=== PATIENT | female | born 1990 | race Caucasian/White ===

== ENCOUNTER 2016-10-25 12:14 | Outpatient (CLI) | payer MEDICAID ==
[~2016-10-25] VITALS: Ht 170.2 cm; Wt 67.6 kg
[~2016-10-25 12:14] MED LIST: AMOX500C2 PO; BCP; FAMO20TA5 PO; NITR100C3 PO; POLY17PO23 GT; PRD50T PO
[2016-10-25] MEDS ORDERED: MULT-64 PO (12:27)
[2016-10-25 12:29] VITALS: BP 110/74
== END 2016-10-25 12:44 | disposition home or self-care (01) ==
LOC: PREOP 12:14
PROVIDERS: ATTEND Obstetrics & Gynecology
DX: Z01.818 Encounter for other preprocedural examination (principal); Z11.2 Encounter for screening for other bacterial diseases; O34.219 Maternal care for unspecified type scar from previous cesarean delivery
CPT/HCPCS: 87081

== ENCOUNTER 2016-10-29 06:20 | Inpatient (IN) | payer MEDICAID ==
[~2016-10-29] VITALS: Ht 172.7 cm; Wt 67.6 kg
[~2016-10-29 06:20] MED LIST changes: +CITRIC ACID/SOB CIT (BICITRA) 30 ML UDC ONE; +FAMOTIDINE 20MG/2ML IV (PEPCID) ONE; +METOCLOPRAMIDE INJ 10 MG/2 ML (REGLAN) ONE; +MULT-64 PO; +ceFAZolin 1,000 MG (ANCEF) VIAL ONE
[2016-10-29] MEDS ORDERED: FAMOTIDINE 20MG/2ML IV (PEPCID) IV NR (06:30)
[2016-10-29] MEDS ORDERED: CITRIC ACID/SOB CIT (BICITRA) 30 ML UDC PO NR (06:30)
[2016-10-29] MEDS ORDERED: METOCLOPRAMIDE INJ 10 MG/2 ML (REGLAN) IV NR (06:30)
[2016-10-29] MEDS ORDERED: CATHETER FLUSH 10 ML SYR IV PRN (06:30)
[2016-10-29] MEDS ORDERED: fentaNYL INJECTION 100 MCG/2 ML AMP ONE (06:44)
[2016-10-29] MEDS ORDERED: OXYTOCIN/NORMAL SALINE 1,000 ML IV ONE (06:44)
[2016-10-29 07:00] VITALS: BP 128/76
[2016-10-29 07:12] LABS: BASOPHILS % (AUTO) 0 % (0-10); EOSINOPHILS # (AUTO) 0.1 10^3/uL (0.0-0.3); EOSINOPHILS % (AUTO) 1 % (0-10); LYMPHOCYTES # (AUTO) 3.5 X 10^3 (1.0-4.0); LYMPHOCYTES % (AUTO) 30 % (12-44); MEAN CORPUSCULAR HEMOGLOBIN 30 PG (25-34); MEAN CORPUSCULAR HGB CONC 34 G/DL (32-36); MEAN CORPUSCULAR VOLUME 88 FL (80-99); MEAN PLATELET VOLUME 10.5 FL (7.4-10.4); MONOCYTES % (AUTO) 9 % (0-12); NEUTROPHILS # (AUTO) 7.1 X 10^3 (1.8-7.8); NEUTROPHILS % (AUTO) 61 % (42-75); PLATELET COUNT 252 10^3/uL (130-400); RED BLOOD COUNT 4.63 10^6/uL (4.35-5.85); RED CELL DISTRIBUTION WIDTH 13.1 % (10.0-14.5); WHITE BLOOD COUNT 11.7 10^3/uL (4.3-11.0)
[2016-10-29] MEDS ORDERED: LIDOCAINE PF 2% 10 ML (XYLOCAINE) AMP ONE (07:18)
[2016-10-29] MEDS ORDERED: BUPIVACAINE SPINAL 0.75% (SENSORCAINE) 2 ML AMP ONE (07:19)
[2016-10-29] MEDS: LACTATED RINGERS 1,000 ML IV PRN ×2 (07:19→07:39)
--- NOTE | 2016-10-29 07:34 | Progress Note-Pre Operative ---
Pre-Operative Progress Note H&P Reviewed The H&P was reviewed, patient examined and no changes noted. Date H&P Reviewed: Oct 29, 2016 Time H&P Reviewed: 07:28 Pre-Operative Diagnosis: Previous section SLAVA SANCHEZ DO Oct 29, 2016 07:33
[2016-10-29] MEDS ORDERED: D5 LR IV SOLUTION 1,000 ML IV SCH (08:35)
[2016-10-29] MEDS ORDERED: OXYTOCIN/NORMAL SALINE 500 ML IV SCH (08:35)
[2016-10-29] MEDS ORDERED: TETANUS,DIPTH,PERTUSS P/F (BOOSTRIX) 0.5 ML VIAL IM SCH (08:45)
[2016-10-29] MEDS ORDERED: MEASLES,MUMPS,RUBELLA 1 EA INJ SC SCH (08:45)
[2016-10-29] MEDS ORDERED: HYDROmorphone (DILAUDID) 2 MG/ML VIAL IVP PRN (08:45)
--- NOTE | 2016-10-29 08:55 | Cesarean Section Operative ---
Procedure Procedure Note Pre-operative Diagnosis: Kassi Leyva is a 26 /Para 2 / 1, Gestational Age 39 weeks with history of previous section Post-operative Diagnosis: same Procedure: Primnary low transverse section Physician: SLAVA SANCHEZ Upholstery Repairer: Silva Goncalves APRN Upholstery Repairer is necessary due to the nature of the procedure. the baby cannot be delivered without the acquisitions assistant who also retracts important neurovascular and bowel structures. Estimated blood loss: 600 mL Disposition: stable in recover Findings: Viable Male infant, Apgars 8/9, weight 7#11oz, intact placenta, 3vc, normal appearing uterus, tubes, and ovaries. Indications:Kassi Leyva is a 26 /Para 2 / 1,Gestational Age 39 weeks with history of previous section Procedure Details: The patient was seen in pre-op and the procedure was discussed with the patient in full, including the risks, benefits, and alternatives. All questions were answered. The patient was taken to the operating room and a time out was performed, verifying patient and procedure. After spinal anesthesia was placed by our anesthesia colleagues, the patient was placed in the dorsal supine with leftward tilt for uterine displacement.~ Her abdomen was then prepped and draped in the typical sterile fashion. A Pfannenstiel skin incision was made using a scalpel and carried down through the underlying fascia. The fascia was incised in the midline and tented up using Dayana clamps. On both the inferior and superior fascia side the rectus muscle was dissected off bluntly and sharply using Leong scissors. The peritoneum was identified and entered bluntly in the midline. This was then stretched laterally using manual strength. After entering the abdominal cavity and confirming lack of intraperitoneal adhesions, a large Freddy retractor was placed and the lower uterine segment was visualized. A scalpel was utilized to make a low transverse uterine incision. Amniotomy was performed with return of clear fluid. The 's head was grasped and brought to the level of the incision and delivered with assistance from the Silastic suction. Fundal pressure was applied and infant was delivered without difficulty. Mouth and nares were suctioned with bulb suction. After the umbilical cord was clamped and cut, the infant was handed off to the pediatric staff. A sample of cord blood was then obtained. The placenta was delivered intact via uterine massage. The uterus was cleared of all clots and debris. The uterine incision was closed using 0 Vicryl in a running locked fashion. A second imbricated layer was placed using 0 Vicryl in a running fashion as well. The bilateral tubes and ovaries appeared normal. The abdominal gutters were cleared of all clots and debris. A final check of the uterine incision showed it to be hemostatic. The peritoneum was closed using 3- 0 Vicryl in a running fashion. The fascia was closed with 0 Vicryl in a running fashion. The subcutaneous space was hemostatic, and irrigated. The subcutaneous space was closed with 3-0 Vicryl in several single interrupted stitches. The skin was then closed using 4-0 Monocryl in a running subcuticular fashion. The skin edges were reapproximated together and were hemostatic. A pressure dressing was applied. All sponge, lap and needle counts were correct at the end of the procedure per nursing. Vitals - Labs Vital Signs - I&O Vital Signs Date Time Temp Pulse Resp B/P (MAP) Pulse Ox O2 Delivery O2 Flow Rate FiO2 10/29/16 07:00 99.2 89 16 128/76 Labs Laboratory Tests 10/29/16 07:00: White Blood Count 11.7H, Red Blood Count 4.63, Hemoglobin 13.8, Hematocrit 41, Mean Corpuscular Volume 88, Mean Corpuscular Hemoglobin 30, Mean Corpuscular Hemoglobin Concent 34, Red Cell Distribution Width 13.1, Platelet Count 252, Mean Platelet Volume 10.5H, Neutrophils (%) (Auto) 61, Lymphocytes (%) (Auto) 30 , Monocytes (%) (Auto) 9, Eosinophils (%) (Auto) 1, Basophils (%) (Auto) 0, Neutrophils # (Auto) 7.1, Lymphocytes # (Auto) 3.5, Monocytes # (Auto) 1.0, Eosinophils # (Auto) 0.1, Basophils # (Auto) 0.0 SLAVA SANCHEZ DO Oct 29, 2016 08:55
[2016-10-29] MEDS ORDERED: HYDR-3812 PO (08:57)
[2016-10-29] MEDS ORDERED: IBUP-1773 PO (08:57)
--- NOTE | 2016-10-29 09:00 | Discharge Inst-Women's Service ---
Discharge Inst-Women's Serv Depart Medication/Instructions New, Converted or Re-Newed RX: RX on Chart Instructions No lifting over 25 lbs. No driving for 1 week. Nothing in the vagina Final Diagnosis Previous section Consults/Follow Up Additional Follow Up: Yes (1-2 weeks for incision check and 6 weeks pp exam ) Activity Activity: Activity as Tolerated Driving Instructions: No Driving for 1 Week NO SMOKING: NO SMOKING Nothing Inside Vagina: No Douching, No [place], No Tampons Diet Discharge Diet: No Restrictions Symptoms to Report to : Swelling Increased, Pain Increased, Fever Over 101 Degrees F, Vaginal Bleeding Increase, Cramps in Feet or Legs, Vaginal Discharge Foul For Any Problems or Questions: Contact Your Physician Skin/Wound Care Infection Signs and Symptoms: Increased Redness, Foul Odor of Wound, Increased Drainage, Skin Itchy or Has a Rash, Increased Swelling, Temperature Above 101 F Operative Area Clean and Dry: Keep Incision Clean/Dry Stitches/[place]/Dermabond: Dermabond Bathing Instructions: SLAVA Locke DO Oct 29, 2016 09:00
[2016-10-29 10:32] LABS: BILIRUBIN,URINE NEGATIVE (NEGATIVE); KETONES,URINE NEGATIVE (NEGATIVE); LEUKOCYTE ESTERASE ,URINE 2+ (NEGATIVE); NITRITE,URINE NEGATIVE (NEGATIVE); PH,URINE 7 (5-9); PROTEIN,URINE NEGATIVE (NEGATIVE); UROBILINOGEN,URINE NORMAL (NORMAL)
[2016-10-29] MEDS: DOCUSATE SODIUM 100 MG (COLACE) CAP PO SCH ×2 (10:38→20:43)
[2016-10-29] MEDS: KETOROLAC 30 MG/ML VIAL IVP SCH ×3 (10:39→22:15)
[2016-10-29 10:43] LABS: CALCIUM OXALATE CRYSTALS,UR FEW /LPF
[2016-10-29 12:00] VITALS: BP 112/65
[2016-10-29] MEDS: HYDROcodone/APAP 5 MG/325 MG (LORTAB) TAB PO PRN ×3 (12:07→20:43)
[2016-10-29] MEDS: CATHETER FLUSH 10 ML SYR IV SCH ×2 (12:13→22:15)
[2016-10-29 16:00] VITALS: BP 102/63
[2016-10-29] MEDS ORDERED: PETROLATUM JELLY(VASELINE) 2.5 OZ TUBE ONE (20:08)
[2016-10-29 20:10] VITALS: BP 126/74
[2016-10-30] VITALS: BP 120/68
[2016-10-30 04:31] VITALS: BP 102/71
[2016-10-30] MEDS: KETOROLAC 30 MG/ML VIAL IVP SCH (04:45)
[2016-10-30] MEDS: CATHETER FLUSH 10 ML SYR IV SCH (04:46)
[2016-10-30 08:00] VITALS: BP 108/73
--- NOTE | 2016-10-30 08:13 | Postpartum Progress Note ---
Post Op Post-operative Day #1 Subjective: Patient is without complaints. Ambulating, voiding. Tolerating a regular diet without nausea or vomiting. Normal lochia. Pain is well controlled with oral pain medications. Passing flatus. Breast feeding. Objective: VS - Last 72 Hours, by Label 10/29/16 10/29/16 10/29/16 10/29/16 07:00 12:00 16:00 20:10 Temp 99.2 98.8 98.0 97.6 Pulse 89 62 65 62 Resp 16 18 20 17 B/P (MAP) 128/76 112/65 102/63 126/74 Pulse Ox 98 95 98 O2 Delivery Room Air Room Air Room Air 10/30/16 10/30/16 00:00 04:31 Temp 98.4 97.2 Pulse 70 72 Resp 19 18 B/P (MAP) 120/68 102/71 Pulse Ox 98 98 O2 Delivery Room Air Room Air Physical Exam: General - Alert and oriented, no apparent distress Abdomen - Soft, appropriately tender to palpation, non-distended, fundus firm at umbilicus Incision - clean, dry and intact; no erythema or induration, no drainage Extremities - no edema, negative Coy's bilaterally labs pending this AM Assessment: 26 y/o post-operative day # 1, status post RLTCS. Recovering well, hemodynamically stable Rh+ Awaiting Hgb Plan: Routine post-operative care. Encourage breast feeding. Encourage ambulation. VTE prophylaxis: SCDs. Plan for discharge tomorrow. Vitals - Labs Vital Signs - I&O Vital Signs Date Time Temp Pulse Resp B/P (MAP) Pulse Ox O2 Delivery O2 Flow Rate FiO2 10/30/16 04:31 97.2 72 18 102/71 98 Room Air 10/30/16 00:00 98.4 70 19 120/68 98 Room Air 10/29/16 20:10 97.6 62 17 126/74 98 Room Air 10/29/16 16:00 98.0 65 20 102/63 95 Room Air 10/29/16 12:00 98.8 62 18 112/65 98 Room Air I & O 10/30/16 07:00 Intake Total 4094 ml Output Total 1750 ml Balance 2344 ml SORIN PATE MD Oct 30, 2016 08:13
[2016-10-30] MEDS: IBUPROFEN 600 MG (MOTRIN) TAB PO SCH ×3 (08:26→21:22)
[2016-10-30] MEDS: HYDROcodone/APAP 5 MG/325 MG (LORTAB) TAB PO PRN ×3 (08:26→18:00)
[2016-10-30] MEDS: DOCUSATE SODIUM 100 MG (COLACE) CAP PO SCH ×2 (08:27→21:22)
[2016-10-30] MEDS: FERROUS SULF 325 MG (IRON) TAB PO SCH (08:27)
[2016-10-30 08:34] LABS: BASOPHILS % (AUTO) 0 % (0-10); EOSINOPHILS % (AUTO) 0 % (0-10); LYMPHOCYTES # (AUTO) 2.4 X 10^3 (1.0-4.0); LYMPHOCYTES % (AUTO) 14 % (12-44); MEAN CORPUSCULAR HEMOGLOBIN 29 PG (25-34); MEAN CORPUSCULAR HGB CONC 33 G/DL (32-36); MEAN CORPUSCULAR VOLUME 89 FL (80-99); MEAN PLATELET VOLUME 9.9 FL (7.4-10.4); MONOCYTES # (AUTO) 1.1 X 10^3 (0.0-1.0); MONOCYTES % (AUTO) 6 % (0-12); NEUTROPHILS # (AUTO) 13.1 X 10^3 (1.8-7.8); NEUTROPHILS % (AUTO) 79 % (42-75); PLATELET COUNT 225 10^3/uL (130-400); RED BLOOD COUNT 4.18 10^6/uL (4.35-5.85); RED CELL DISTRIBUTION WIDTH 13.2 % (10.0-14.5); WHITE BLOOD COUNT 16.5 10^3/uL (4.3-11.0)
--- NOTE | 2016-10-30 09:37 | Anesthesia-Regional Post-Op ---
Regional Patient Condition Mental Status: Alert, Oriented x3 Circulation: Same as Pre-Op Headache: Absent Sensation: Full Recovery Motor Block: Absent Post Op Complications Complications None Follow Up Care/Instructions Patient Instructions None needed. Anesthesia/Patient Condition Patient is doing well, no complaints, stable vital signs, no apparent adverse anesthesia problems. No complications reported per nursing. RAMOS BIRMINGHAM CRNA Oct 30, 2016 09:37
[2016-10-30 12:00] VITALS: BP 111/71
[2016-10-30 16:00] VITALS: BP 106/62
[2016-10-30 20:40] VITALS: BP 119/67
[2016-10-31] MEDS: HYDROcodone/APAP 5 MG/325 MG (LORTAB) TAB PO PRN ×2 (00:55→11:58)
[2016-10-31] MEDS: IBUPROFEN 600 MG (MOTRIN) TAB PO SCH ×2 (06:35→13:20)
[2016-10-31 08:45] VITALS: BP 112/68
[2016-10-31] MEDS: FERROUS SULF 325 MG (IRON) TAB PO SCH (08:58)
[2016-10-31] MEDS: DOCUSATE SODIUM 100 MG (COLACE) CAP PO SCH (08:58)
--- NOTE | 2016-10-31 09:32 | Postpartum Progress Note ---
Post Op Post-operative Day #2 Subjective: Patient is without complaints. Ambulating, voiding. Tolerating a regular diet without nausea or vomiting. Normal lochia. Pain is well controlled with oral pain medications. Passing flatus. Objective: VS - Last 72 Hours, by Label 10/29/16 10/29/16 10/29/16 10/29/16 07:00 12:00 16:00 20:10 Temp 99.2 98.8 98.0 97.6 Pulse 89 62 65 62 Resp 16 18 20 17 B/P (MAP) 128/76 112/65 102/63 126/74 Pulse Ox 98 95 98 O2 Delivery Room Air Room Air Room Air 10/30/16 10/30/16 10/30/16 10/30/16 00:00 04:31 08:00 12:00 Temp 98.4 97.2 96.4 97.1 Pulse 70 72 58 68 Resp 19 18 18 18 B/P (MAP) 120/68 102/71 108/73 111/71 Pulse Ox 98 98 96 96 O2 Delivery Room Air Room Air Room Air Room Air 10/30/16 10/30/16 10/31/16 10/31/16 16:00 20:40 01:30 08:45 Temp 98.1 97.4 97.0 98.0 Pulse 62 61 65 67 Resp 18 18 18 16 B/P (MAP) 106/62 119/67 112/68 Pulse Ox 96 98 97 O2 Delivery Room Air Room Air Room Air Room Air Physical Exam: General - Alert and oriented, no apparent distress Abdomen - Soft, appropriately tender to palpation, non-distended, fundus firm at umbilicus Incision - clean, dry and intact; no erythema or induration, no drainage Extremities - no edema, negative Coy's bilaterally no new labs Assessment: 26 y/o post-operative day # 2, status post RLTCS. Recovering well, hemodynamically stable Plan: Routine post-operative care. Encourage breast feeding. Encourage ambulation. VTE prophylaxis: SCDs. Plan for discharge today, f/u with Dr. Menon as per her discharge instructions. Vitals - Labs Vital Signs - I&O Vital Signs Date Time Temp Pulse Resp B/P (MAP) Pulse Ox O2 Delivery O2 Flow Rate FiO2 10/31/16 08:45 98.0 67 16 112/68 Room Air 10/31/16 01:30 97.0 65 18 97 Room Air 10/30/16 20:40 97.4 61 18 119/67 98 Room Air 10/30/16 16:00 98.1 62 18 106/62 96 Room Air 10/30/16 12:00 97.1 68 18 111/71 96 Room Air SORIN PATE MD Oct 31, 2016 09:32
[2016-10-31 14:10] VITALS: BP 114/73
== END 2016-10-31 15:20 | disposition home or self-care (01) | DRG 766 ==
LOC: LDRP 06:20 → WS 10:28
PROVIDERS: ADMIT Obstetrics & Gynecology; ATTEND Obstetrics & Gynecology
PROC: 10D00Z1 Extraction of Products of Conception, Low, Open Approach (ICD-10-PCS; principal; 2016-10-29 07:43)
DX: O34.211 Maternal care for low transverse scar from previous cesarean delivery (principal); Z3A.39 39 weeks gestation of pregnancy; Z37.0 Single live birth
CPT/HCPCS: 36415; 81000; 85025; 86850; 86900; 86901; 94664

== ENCOUNTER 2016-11-07 20:19 | Observation (INO) | payer MEDICAID ==
[~2016-11-07] VITALS: Ht 172.7 cm; Wt 61.2 kg
[~2016-11-07 20:19] MED LIST changes: -CITRIC ACID/SOB CIT (BICITRA) 30 ML UDC ONE; -FAMOTIDINE 20MG/2ML IV (PEPCID) ONE; +HYDR-3812 PO; +IBUP-1773 PO; -METOCLOPRAMIDE INJ 10 MG/2 ML (REGLAN) ONE; -ceFAZolin 1,000 MG (ANCEF) VIAL ONE
--- NOTE | 2016-11-07 21:49 | ED GU-Female ---
General Chief Complaint: -Female Stated Complaint: INCISION BLEEDING, ABD PAIN AND CRAMPING Nursing Triage Note: VAG BLEED/ABDOMINAL CRAMPING X 1.5HRS. S/P 10/30/16 Nursing Sepsis Screen: No Definite Risk Source: patient Exam Limitations: no limitations History of Present Illness Time seen by provider: 21:49 Initial Comments 26-year-old female patient presents to the emergency department with complaints of vaginal bleeding 9 days postop from . performed on by Dr. Sanchez. Patient reports mild spotting until this afternoon when she began having heavy vaginal bleeding. States she soaked through 2 pads and her clothes while in the emergency department waiting room. Patient does complain of some nausea as well as lower abdominal cramping. Denies fever, chills, dysuria, frequency, hematuria. Patient is breast feeding. Timing/Duration: this afternoon, getting worse Severity/Quality: cramping Location: suprapubic Radiation: none Activities at Onset: none Prior Genitourinary Problems: none Sexual [place] History: not active Modifying Factors: Worsens With Movement, Worsens With Palpation Allergies and Home Medications Allergies Coded Allergies: No Known Drug Allergies (Unverified , 11/08/16) Home Medications Hydrocodone/Acetaminophen 1 Each Tablet, 1-2 TAB PO Q4H PRN for PAIN-MODERATE, # 45 Prescribed by: SLAVA SANCHEZ on 10/29/16 0857 Ibuprofen 600 Mg Tablet, 600 MG PO Q6H, #40 Ref 1 Prescribed by: SLAVA SANCHEZ on 10/29/16 0857 Multivitamins with Iron 1 Each Tab.chew, 1 EACH PO DAILY, (Reported) Constitutional: No chills, No diaphoresis, No dizziness, No fever, No malaise Respiratory: No cough, No short of breath Cardiovascular: No chest pain, No edema, No palpitations, No syncope Gastrointestinal: see HPI, abdominal pain, No constipation, No diarrhea, loss of appetite, nausea, No vomiting Genitourinary: see HPI, denies burning, denies discharge, denies dysuria, denies frequency, denies flank pain, pain, other (vaginal bleeding) Musculoskeletal: no symptoms reported Skin: no symptoms reported Psychiatric/Neurological: No Symptoms Reported Hematologic/Lymphatic: No Symptoms Reported All Other Systemes Reviewed Negative Unless Noted: Yes (Negative excepted noted.) Past Rjukkqf-Hlhact-Rzcfyo Hx Patient Social History Alcohol Use: Denies Use Recreational Drug Use: No Smoking Status: Never a Smoker 2nd Hand Smoke Exposure: No Recent Foreign Travel: No Contact w/Someone Who Travel: No Recent Infectious Disease Expo: No Recent Hopitalizations: No Immunizations Up To Date Tetanus Booster (TDap): Less than 5yrs Seasonal Allergies Seasonal Allergies: No Surgeries HX Surgeries: Yes Surgeries: Adenoidectomy, Section (x2), Tonsillectomy Respiratory Hx Respiratory Disorders: Yes Respiratory Disorders: Asthma Cardiovascular Hx Cardiac Disorders: No Neurological Hx Neurological Disorders: No Reproductive System : No Hx : 2 Hx Para: 2 Hx Reproductive Disorders: No Sexually Transmitted Disease: No HIV/AIDS: No Female Reproductive Disorders: Denies Genitourinary Hx Genitourinary Disorders: No Gastrointestinal Hx Gastrointestinal Disorders: No Gastrointestinal Disorders: Gastroesophageal Reflux Musculoskeletal Hx Musculoskeletal Disorders: No Musculoskeletal Disorders: Chronic Back Pain Endocrine Hx Endocrine Disorders: No HEENT HX ENT Disorders: Yes Loss of Vision: Denies Hearing Impairment: Denies Psychosocial Hx Psychiatric Problems: Yes (BIPOLAR) Behavioral Health Disorders: Anxiety, Bipolar Blood Transfusions Hx Blood Disorders: No Adverse Reaction to a Blood Tr: No (N/A) Reviewed Nursing Assessment Reviewed/Agree w Nursing PMH: Yes Family Medical History Significant Family History: No Pertinent Family Hx Family Medial History: COPD 19 MOTHER Cardiovascular disease 19 MOTHER Hypertension 19 MOTHER Kidney disease 19 MOTHER Seizure disorder 19 MOTHER UNKOWN HX 19 FATHER G8 BROTHER Physical Exam Vital Signs Vital Sign - Last 12Hours 11/07/16 21:19 Temp 100.2 Pulse 100 Resp 18 B/P (MAP) 154/101 Pulse Ox 96 O2 Delivery Room Air Capillary Refill : Less Than 3 Seconds General Appearance: WD/WN, mild distress HEENT: PERRL/EOMI, pharynx normal Neck: supple, normal inspection Cardiovascular: normal peripheral pulses, regular rate, rhythm, no edema, no murmur Respiratory: lungs clear, normal breath sounds, no respiratory distress Gastrointestinal: normal bowel sounds, soft, No distended, guarding ( suprapubic and RLQ.), No rebound, tenderness (suprapubic and BLQ), other (lower abdominal incision intact without evidence of cellulitis or drainage.) Pelvic: other ((deferred due to recent c/section)) Back: normal inspection Extremities: normal inspection, no pedal edema, normal capillary refill Neurologic/Psychiatric: alert, normal mood/affect, oriented x 3 Skin: normal color, warm/dry Progress/Results/Core Measures Results/Orders Lab Results Laboratory Tests Test 11/07/16 22:05 Range/Units White Blood Count 14.4 H 4.3-11.0 10^3/uL Red Blood Count 4.63 4.35-5.85 10^6/uL Hemoglobin 13.3 11.5-16.0 G/DL Hematocrit 41 35-52 % Mean Corpuscular Volume 88 80-99 FL Mean Corpuscular Hemoglobin 29 25-34 PG Mean Corpuscular Hemoglobin Concent 33 32-36 G/DL Red Cell Distribution Width 12.4 10.0-14.5 % Platelet Count 337 130-400 10^3/uL Mean Platelet Volume 9.0 7.4-10.4 FL Neutrophils (%) (Auto) 73 42-75 % Lymphocytes (%) (Auto) 18 12-44 % Monocytes (%) (Auto) 8 0-12 % Eosinophils (%) (Auto) 1 0-10 % Basophils (%) (Auto) 0 0-10 % Neutrophils # (Auto) 10.5 H 1.8-7.8 X 10^3 Lymphocytes # (Auto) 2.6 1.0-4.0 X 10^3 Monocytes # (Auto) 1.1 H 0.0-1.0 X 10^3 Eosinophils # (Auto) 0.1 0.0-0.3 10^3/uL Basophils # (Auto) 0.1 0.0-0.1 10^3/uL Neutrophils % (Manual) 63 % Lymphocytes % (Manual) 21 % Monocytes % (Manual) 7 % Eosinophils % (Manual) 0 % Basophils % (Manual) 1 % Band Neutrophils 8 % Blood Morphology Comment NORMAL Sodium Level 139 135-145 MMOL/L Potassium Level 3.6 3.6-5.0 MMOL/L Chloride Level 103 98-107 MMOL/L Carbon Dioxide Level 26 21-32 MMOL/L Anion Gap 10 5-14 MMOL/L Blood Urea Nitrogen 12 7-18 MG/DL Creatinine 0.69 0.60-1.30 MG/DL Estimat Glomerular Filtration Rate > 60 BUN/Creatinine Ratio 17 Glucose Level 94 70-105 MG/DL Calcium Level 9.1 8.5-10.1 MG/DL Total Bilirubin 0.4 0.1-1.0 MG/DL Aspartate Amino Transf (AST/SGOT) 22 5-34 U/L Alanine Aminotransferase (ALT/SGPT) 21 0-55 U/L Alkaline Phosphatase 146 H 40-136 U/L Total Protein 6.8 6.4-8.2 G/DL Albumin 3.7 3.2-4.5 G/DL My Orders Orders - ELISA SCHMIDT Saline Lock/Iv-Start (11/07/16 21:55) Cbc With Automated Diff (11/07/16 21:55) Comprehensive Metabolic Panel (11/07/16 21:55) Us Pelvic (Non Ob)30933 (11/07/16 21:55) Ketorolac Injection (Toradol Injection) (11/07/16 21:55) Ondansetron Injection (Zofran Injectio (11/07/16 22:00) Ns Iv 1000 Ml (Sodium Chloride 0.9%) (11/07/16 21:55) Manual Differential (11/07/16 22:05) Morphine Injection (Morphine Injection (11/08/16 00:33) Ondansetron Injection (Zofran Injectio (11/08/16 00:45) Medications Given in ED Current Medications Medications Dose Ordered Sig/Rach Route Start Time Stop Time Status Last Admin Dose Admin Ondansetron HCl 4 mg ONCE ONCE IVP 11/07/16 22:00 11/07/16 22:01 DC 11/07/16 22:04 4 MG Sodium Chloride 1,000 ml @ 0 mls/hr Q0M ONCE IV 11/07/16 21:55 11/07/16 21:57 DC 11/07/16 22:04 0 MLS/HR Vital Signs/I&O Vital Sign - Last 12Hours 11/07/16 11/08/16 21:19 00:37 Temp 100.2 100.2 Pulse 100 Resp 18 B/P (MAP) 154/101 Pulse Ox 96 O2 Delivery Room Air Intake and Output 11/08/16 00:00 Intake Total 1000 ml Balance 1000 ml Blood Pressure Mean: 118 Diagnostic Imaging Diagonstic Imaging: Ultrasound Plain Films/CT/US/NM/MRI: pelvis Comments Heterogenous thickened 6 cm endometrium concerning for hemorrhage. Cannot exclude infection/inflammation or retained products. Reviewed: Other (statrad report reviewed by me.) Departure Communication Time/Spoke to Admitting Phy: 00:[address] Hanson graciously accepts patient to his surgical service for IM methergine , IV hydration, pain control, and further management. Progress Notes All laboratory findings, diagnostic study findings, and plan for admission discussed with the patient. Patient voices understanding and agrees with the treatment plan. No further clots passed following u/s. Patient reports improvement in symptoms with Toradol and Zofran. Dr. Calloway notified of plan for admit. Impression Impression: Primary Impression: Postoperative vaginal bleeding Additional Impressions: Leukocytosis Postoperative pain Abnormal ultrasound of uterus Disposition: ADMITTED INPATIENT Condition: Stable Decision to Admit Reason: Admit from ER (General) Decision to Admit/Date: November 08, 2016 Time/Decision to Admit Time: 00:04 Departure-Patient Inst. Referrals: NO,LOCAL PHYSICIAN (PCP/Family) Primary Care Physician ELISA SCHMIDT Nov 07, 2016 21:49
[2016-11-07] MEDS ORDERED: NS IV 1000 ML 1,000 ML IV ONE (21:55)
[2016-11-07] MEDS ORDERED: KETOROLAC 30 MG/ML VIAL IVP STA (21:55)
[2016-11-07] MEDS ORDERED: ONDANSETRON 4 MG/2 ML (SDV) Z0FRAN IVP ONE (22:00)
[2016-11-07 22:13] LABS: BASOPHILS # (AUTO) 0.1 10^3/uL (0.0-0.1); BASOPHILS % (AUTO) 0 % (0-10); EOSINOPHILS # (AUTO) 0.1 10^3/uL (0.0-0.3); EOSINOPHILS % (AUTO) 1 % (0-10); LYMPHOCYTES # (AUTO) 2.6 X 10^3 (1.0-4.0); LYMPHOCYTES % (AUTO) 18 % (12-44); MEAN CORPUSCULAR HEMOGLOBIN 29 PG (25-34); MEAN CORPUSCULAR HGB CONC 33 G/DL (32-36); MEAN CORPUSCULAR VOLUME 88 FL (80-99); MONOCYTES # (AUTO) 1.1 X 10^3 (0.0-1.0); MONOCYTES % (AUTO) 8 % (0-12); NEUTROPHILS # (AUTO) 10.5 X 10^3 (1.8-7.8); NEUTROPHILS % (AUTO) 73 % (42-75); PLATELET COUNT 337 10^3/uL (130-400); RED BLOOD COUNT 4.63 10^6/uL (4.35-5.85); RED CELL DISTRIBUTION WIDTH 12.4 % (10.0-14.5); WHITE BLOOD COUNT 14.4 10^3/uL (4.3-11.0)
[2016-11-07 22:32] LABS: BAND NEUTROPHILS 8 %; BASOPHILS % (MANUAL) 1 %; EOSINOPHILS % (MANUAL) 0 %; LYMPHOCYTES % (MANUAL) 21 %; NEUTROPHILS % (MANUAL) 63 %
[2016-11-07 22:35] LABS: ALANINE AMINOTRANSFERASE 21 U/L (0-55); ALBUMIN 3.7 G/DL (3.2-4.5); ANION GAP 10 MMOL/L (5-14); ASPARTATE AMINO TRANSFERASE 22 U/L (5-34); BILIRUBIN,TOTAL 0.4 MG/DL (0.1-1.0); BLOOD UREA NITROGEN 12 MG/DL (7-18); BUN/CREATININE RATIO 17; CALCIUM 9.1 MG/DL (8.5-10.1); CARBON DIOXIDE 26 MMOL/L (21-32); CHLORIDE 103 MMOL/L (98-107); CREATININE SERUM 0.69 MG/DL (0.60-1.30); GFR ESTIMATED > 60; GLUCOSE 94 MG/DL (70-105); POTASSIUM 3.6 MMOL/L (3.6-5.0); SODIUM 139 MMOL/L (135-145); TOTAL PROTEIN 6.8 G/DL (6.4-8.2)
[2016-11-08] MEDS ORDERED: morphine INJ 10 MG/ML 1ML (SYR OR VIAL) ONE (00:32)
[2016-11-08] MEDS ORDERED: ONDANSETRON 4 MG/2 ML (SDV) Z0FRAN ONE (00:32)
[2016-11-08] MEDS ORDERED: morphine INJ 10 MG/ML 1ML (SYR OR VIAL) IVP STA (00:33)
[2016-11-08] MEDS ORDERED: NS IV 1000 ML 1,000 ML ONE (00:43)
[2016-11-08] MEDS ORDERED: ONDANSETRON 4 MG/2 ML (SDV) Z0FRAN IVP ONE (00:45)
[2016-11-08 01:00] VITALS: BP 134/80
[2016-11-08] MEDS ORDERED: ONDANSETRON 4 MG/2 ML (SDV) Z0FRAN IVP PRN (01:00)
[2016-11-08] MEDS ORDERED: METHYLERGONOVINE 0.2 MG/ML (METHERGINE) AMP IM PRN (01:00)
[2016-11-08] MEDS ORDERED: morphine INJ 4 MG/ML 1 ML (VIAL/SYRINGE) IVP PRN (01:00)
[2016-11-08] MEDS: NS IV 1000 ML 1,000 ML IV SCH ×2 (01:30→07:49)
[2016-11-08] MEDS: HYDROcodone/APAP 5 MG/325 MG (LORTAB) TAB PO PRN ×2 (05:28→12:52)
[2016-11-08 05:30] VITALS: BP 116/71
[2016-11-08 05:39] LABS: BASOPHILS % (AUTO) 0 % (0-10); EOSINOPHILS % (AUTO) 0 % (0-10); LYMPHOCYTES % (AUTO) 16 % (12-44); MEAN CORPUSCULAR HEMOGLOBIN 30 PG (25-34); MEAN CORPUSCULAR HGB CONC 33 G/DL (32-36); MEAN CORPUSCULAR VOLUME 88 FL (80-99); MEAN PLATELET VOLUME 8.9 FL (7.4-10.4); MONOCYTES # (AUTO) 1.2 X 10^3 (0.0-1.0); MONOCYTES % (AUTO) 6 % (0-12); NEUTROPHILS # (AUTO) 14.3 X 10^3 (1.8-7.8); NEUTROPHILS % (AUTO) 77 % (42-75); PLATELET COUNT 305 10^3/uL (130-400); RED CELL DISTRIBUTION WIDTH 12.2 % (10.0-14.5); WHITE BLOOD COUNT 18.5 10^3/uL (4.3-11.0)
[2016-11-08 05:57] LABS: ALANINE AMINOTRANSFERASE 16 U/L (0-55); ALBUMIN 3.2 G/DL (3.2-4.5); ANION GAP 8 MMOL/L (5-14); ASPARTATE AMINO TRANSFERASE 15 U/L (5-34); BILIRUBIN,TOTAL 0.7 MG/DL (0.1-1.0); BLOOD UREA NITROGEN 11 MG/DL (7-18); BUN/CREATININE RATIO 17; CALCIUM 8.4 MG/DL (8.5-10.1); CARBON DIOXIDE 25 MMOL/L (21-32); CHLORIDE 107 MMOL/L (98-107); CREATININE SERUM 0.66 MG/DL (0.60-1.30); GFR ESTIMATED > 60; GLUCOSE 99 MG/DL (70-105); POTASSIUM 4.4 MMOL/L (3.6-5.0); SODIUM 140 MMOL/L (135-145); TOTAL PROTEIN 5.8 G/DL (6.4-8.2)
[2016-11-08 07:40] VITALS: BP 122/70
--- NOTE | 2016-11-08 08:09 | Diagnostic Imaging Report ---
PROCEDURE: US PELVIC (NON OB) TECHNIQUE: Multiple real-time grayscale images were obtained over the pelvis in various projections transabdominally. IMPRESSION: Vaginal bleeding status post 9 days ago. COMPARISON: None available. FINDINGS: The uterus is enlarged measuring 13.8 x 10.0 x 8.6 cm, compatible with uterus. The endometrium is markedly thickened measuring up to 6 cm and heterogeneously hyperechoic. There is no internal vascularity within the endometrium to suggest retained products of conception. Overall appearance would suggest a large amount of endometrial clot/hemorrhage. Ovaries are not well visualized by transabdominal imaging due to overlying bowel gas. No suspicious adnexal mass or free fluid. IMPRESSION: 1. uterus with a large amount of avascular hemorrhage/clot within the endometrium. Lack of internal blood flow would suggest that retained products of conception are less likely. 2. Findings are in general agreement with the preliminary report. Dictated by: Dictated on workstation # [id number]
[2016-11-08] MEDS ORDERED: CLINDAMYCIN INJECTION 600 MG in NS (IVPB) 50 ML IV NR (08:15)
[2016-11-08] MEDS ORDERED: AMPICILLIN INJECTION 1,000 MG in NS (IVPB) 50 ML IV NR (08:15)
[2016-11-08] MEDS ORDERED: GENTAMICIN IVPB 80 MG/50 ML 50 ML IV NR (08:15)
[2016-11-08] MEDS ORDERED: METH0.2T47 PO (08:22)
[2016-11-08] MEDS ORDERED: CEPH-507 PO (08:22)
[2016-11-08] MEDS ORDERED: METR500T PO (08:22)
--- NOTE | 2016-11-08 08:22 | Discharge Inst-Women's Service ---
Discharge Inst-Women's Serv Depart Medication/Instructions New, Converted or Re-Newed RX: RX on Chart Consults/Follow Up Additional Follow Up: Yes Activity Activity: Activity as Tolerated Driving Instructions: You May Drive (do not drive while taking narcotic pain meds) NO SMOKING: NO SMOKING Nothing Inside Vagina: No Douching, No [place], No Tampons Diet Discharge Diet: No Restrictions Symptoms to Report to : Bleeding Excessive, Pain Increased, Fever Over 101 Degrees F, Vaginal Bleeding Increase, Questions/Concerns For Any Problems or Questions: Contact Your Physician Skin/Wound Care Infection Signs and Symptoms: Increased Redness, Foul Odor of Wound, Increased Drainage, Skin Itchy or Has a Rash, Increased Swelling, Temperature Above 101 F Operative Area Clean and Dry: Keep Incision Clean/Dry Stitches/[place]/Dermabond: Dermabond, Care of Stitches Bathing Instructions: ELANA Bauman DO November 08, 2016 8:22 am
[2016-11-08] MEDS ORDERED: metroNIDAZOLE 500MG/100ML IVPB 100 ML IV NR (08:30)
[2016-11-08] MEDS ORDERED: ceFAZolin INJECTION 1,000 MG in NS (IVPB) 50 ML IV NR (08:30)
--- NOTE | 2016-11-08 08:44 | History & Physical-OB/GYN ---
History of Present Illness History of Present Illness Reason for visit/HPI This patient is approximately one week repeat , and presented to the emergency department with blood clots passing and heavy vaginal bleeding. The patient reports being home for almost a week without any bleeding at all, she was up and doing some housework today and began bleeding extensively according to her and presented to the emergency department. Upon presentation emergency department there was evidence of large blood clots noted , however bleeding subsided shortly after her arrival. I was notified of the patient and ordered a dose of IM Methergine and admitted the patient overnight for observation. Date of Admission November 08, 2016 at 12:11 am I consulted on this patient on 11/08/16 08:40 Attending Physician Frances Sanchez DO Admitting Physician Maria Eugenia,Local Physician Consult Allergies and Home Medications Allergies Coded Allergies: No Known Drug Allergies (Unverified , 11/08/16) Home Medications Cephalexin 500 Mg Capsule, 500 MG PO QID for 7 Days, #28 Prescribed by: ELANA OLMOS on 11/08/16 0822 Hydrocodone/Acetaminophen 1 Each Tablet, 1-2 TAB PO Q4H PRN for PAIN-MODERATE, # 45 Prescribed by: FRANCES SANCHEZ on 10/29/16 0857 Ibuprofen 600 Mg Tablet, 600 MG PO Q6H, #40 Ref 1 Prescribed by: FRANCES SANCHEZ on 10/29/16 0857 Methylergonovine Maleate 0.2 Mg Tablet, 0.2 MG PO TID for 3 Days, #9 Prescribed by: ELANA OLMOS on 11/08/16 0822 Metronidazole 500 Mg Tablet, 500 MG PO BID for 7 Days, #10 Prescribed by: ELANA OLMOS on 11/08/16 0822 Multivitamins with Iron 1 Each Tab.chew, 1 EACH PO DAILY, (Reported) Past Aohjseu-Wygxsx-Zqfaqf Hx Patient Social History Alcohol Use: Denies Use Recreational Drug Use: No Smoking Status: Never a Smoker 2nd Hand Smoke Exposure: No Recent Foreign Travel: No Contact w/other who traveled: No Recent Hopitalizations: No Recent Infectious Disease Expo: No Immunizations Up To Date Tetanus Booster (TDap): Less than 5yrs Seasonal Allergies Seasonal Allergies: No Surgeries HX Surgeries: Yes Surgeries: Adenoidectomy, Section (x2), Tonsillectomy Respiratory Hx Respiratory Disorders: Yes Cardiovascular Hx Cardiovascular Disorders: No Neurological Hx Neurological Disorders: No Reproductive System : No Hx : 2 Hx Para: 2 Hx Reproductive Disorders: No Sexually Transmitted Disease: No HIV/AIDS: No Female Reproductive Disorders: Denies Genitourinary Hx Genitourinary Disorders: No Gastrointestinal Hx Gastrointestinal Disorders: No Gastrointestinal Disorders: Gastroesophageal Reflux Musculoskeletal Hx Musculoskeletal Disorders: No Musculoskeletal Disorders: Chronic Back Pain Endocrine Hx Endocrine Disorders: No HEENT HX ENT Disorders: Yes Loss of Vision: Denies Hearing Impairment: Denies Psychosocial Hx Psychiatric Problems: Yes (BIPOLAR) Behavioral Health Disorders: Anxiety, Bipolar Blood Transfusions Hx Blood Disorders: No Adverse Reaction to a Blood Tr: No (N/A) Reviewed Nursing Assessment Reviewed/Agree w Nursing PMH: Yes Family Medical History Significant Family History: No Pertinent Family Hx Family Hx: COPD 19 MOTHER Cardiovascular disease 19 MOTHER Hypertension 19 MOTHER Kidney disease 19 MOTHER Seizure disorder 19 MOTHER UNKOWN HX 19 FATHER G8 BROTHER Constitutional: see HPI EENTM: see HPI Respiratory: see HPI Cardiovascular: see HPI Gastrointestinal: see HPI Genitourinary: see HPI Musculoskeletal: see HPI Skin: see HPI Psychiatric/Neurological: See HPI All Other Systems Reviewed Negative Unless Noted: Yes Physical Exam Physical Exam Vital Signs Vital Signs Date Time Temp Pulse Resp B/P (MAP) Pulse Ox O2 Delivery O2 Flow Rate FiO2 11/08/16 07:40 98.1 63 18 122/70 Room Air 11/08/16 05:30 97.4 85 16 116/71 97 Room Air 11/08/16 01:00 98.8 80 16 134/80 97 Room Air 11/08/16 00:40 100.2 11/08/16 00:37 100.2 11/08/16 00:30 99.0 100 18 96 11/07/16 21:19 100.2 100 18 154/101 96 Room Air I & O 11/08/16 07:00 Intake Total 1000 ml Output Total 200 ml Balance 800 ml Capillary Refill : Less Than 3 Seconds Labs Laboratory Tests 11/07/16 22:05: White Blood Count 14.4H, Red Blood Count 4.63, Hemoglobin 13.3, Hematocrit 41, Mean Corpuscular Volume 88, Mean Corpuscular Hemoglobin 29, Mean Corpuscular Hemoglobin Concent 33, Red Cell Distribution Width 12.4, Platelet Count 337, Mean Platelet Volume 9.0, Neutrophils (%) (Auto) 73, Lymphocytes (%) (Auto) 18, Monocytes (%) (Auto) 8, Eosinophils (%) (Auto) 1, Basophils (%) (Auto) 0, Neutrophils # (Auto) 10.5H, Lymphocytes # (Auto) 2.6, Monocytes # (Auto) 1.1H, Eosinophils # (Auto) 0.1, Basophils # (Auto) 0.1, Neutrophils % (Manual) 63, Lymphocytes % (Manual) 21, Monocytes % (Manual) 7, Eosinophils % (Manual) 0, Basophils % (Manual) 1, Band Neutrophils 8, Blood Morphology Comment NORMAL, Sodium Level 139, Potassium Level 3.6, Chloride Level 103, Carbon Dioxide Level 26, Anion Gap 10, Blood Urea Nitrogen 12, Creatinine 0.69, Estimat Glomerular Filtration Rate > 60, BUN/Creatinine Ratio 17, Glucose Level 94, Calcium Level 9.1, Total Bilirubin 0.4, Aspartate Amino Transf (AST/SGOT) 22, Alanine Aminotransferase (ALT/SGPT) 21, Alkaline Phosphatase 146H, Total Protein 6.8, Albumin 3.7 11/08/16 05:32: White Blood Count 18.5H, Red Blood Count 3.90L, Hemoglobin 11.5, Hematocrit 34L , Mean Corpuscular Volume 88, Mean Corpuscular Hemoglobin 30, Mean Corpuscular Hemoglobin Concent 33, Red Cell Distribution Width 12.2, Platelet Count 305, Mean Platelet Volume 8.9, Neutrophils (%) (Auto) 77H, Lymphocytes (%) (Auto) 16 , Monocytes (%) (Auto) 6, Eosinophils (%) (Auto) 0, Basophils (%) (Auto) 0, Neutrophils # (Auto) 14.3H, Lymphocytes # (Auto) 3.0, Monocytes # (Auto) 1.2H, Eosinophils # (Auto) 0.0, Basophils # (Auto) 0.0, Sodium Level 140, Potassium Level 4.4, Chloride Level 107, Carbon Dioxide Level 25, Anion Gap 8, Blood Urea Nitrogen 11, Creatinine 0.66, Estimat Glomerular Filtration Rate > 60, BUN/ Creatinine Ratio 17, Glucose Level 99, Calcium Level 8.4L, Total Bilirubin 0.7, Aspartate Amino Transf (AST/SGOT) 15, Alanine Aminotransferase (ALT/SGPT) 16, Alkaline Phosphatase 123, Total Protein 5.8L, Albumin 3.2 General Appearance: No Apparent Distress Respiratory: Lungs Clear Cardiovascular: Regular Rate, Rhythm Abdominal: normal bowel sounds Uterus: WNL, Tender (firm and palpable below the umbilicus, however, mildly tender) Pelvic Exam: deferred Comments 6 cm thickness of endometrium on ultrasound. Laboratory Tests Test 11/07/16 22:05 11/08/16 05:32 Range/Units White Blood Count 14.4 H 18.5 H 4.3-11.0 10^3/uL Red Blood Count 4.63 3.90 L 4.35-5.85 10^6/uL Hemoglobin 13.3 11.5 11.5-16.0 G/DL Hematocrit 41 34 L 35-52 % Mean Corpuscular Volume 88 88 80-99 FL Mean Corpuscular Hemoglobin 29 30 25-34 PG Mean Corpuscular Hemoglobin Concent 33 33 32-36 G/DL Red Cell Distribution Width 12.4 12.2 10.0-14.5 % Platelet Count 337 305 130-400 10^3/uL Mean Platelet Volume 9.0 8.9 7.4-10.4 FL Neutrophils (%) (Auto) 73 77 H 42-75 % Lymphocytes (%) (Auto) 18 16 12-44 % Monocytes (%) (Auto) 8 6 0-12 % Eosinophils (%) (Auto) 1 0 0-10 % Basophils (%) (Auto) 0 0 0-10 % Neutrophils # (Auto) 10.5 H 14.3 H 1.8-7.8 X 10^3 Lymphocytes # (Auto) 2.6 3.0 1.0-4.0 X 10^3 Monocytes # (Auto) 1.1 H 1.2 H 0.0-1.0 X 10^3 Eosinophils # (Auto) 0.1 0.0 0.0-0.3 10^3/uL Basophils # (Auto) 0.1 0.0 0.0-0.1 10^3/uL Neutrophils % (Manual) 63 % Lymphocytes % (Manual) 21 % Monocytes % (Manual) 7 % Eosinophils % (Manual) 0 % Basophils % (Manual) 1 % Band Neutrophils 8 % Blood Morphology Comment NORMAL Sodium Level 139 140 135-145 MMOL/L Potassium Level 3.6 4.4 3.6-5.0 MMOL/L Chloride Level 103 107 98-107 MMOL/L Carbon Dioxide Level 26 25 21-32 MMOL/L Anion Gap 10 8 5-14 MMOL/L Blood Urea Nitrogen 12 11 7-18 MG/DL Creatinine 0.69 0.66 0.60-1.30 MG/DL Estimat Glomerular Filtration Rate > 60 > 60 BUN/Creatinine Ratio 17 17 Glucose Level 94 99 70-105 MG/DL Calcium Level 9.1 8.4 L 8.5-10.1 MG/DL Total Bilirubin 0.4 0.7 0.1-1.0 MG/DL Aspartate Amino Transf (AST/SGOT) 22 15 5-34 U/L Alanine Aminotransferase (ALT/SGPT) 21 16 0-55 U/L Alkaline Phosphatase 146 H 123 40-136 U/L Total Protein 6.8 5.8 L 6.4-8.2 G/DL Albumin 3.7 3.2 3.2-4.5 G/DL Assessment/Plan Assessment and Plan Patient started on oral Methergine this morning. If bleeding continues to be stable we'll discharge later today. She was also given a dose of IV Ancef and Flagyl for suspicion of underlying endometritis. I am starting the patient on a seven-day course of Keflex and Flagyl to go home with. She has follow-up with Dr. Sanchez tomorrow. Problems: Admission Diagnosis Late hemorrhage Thickened endometrial lining Leukocytosis- concern for possible endometritis ELANA OLMOS DO November 08, 2016 8:44 am
[2016-11-08] MEDS ORDERED: FAMOTIDINE 20MG/2ML IV (PEPCID) IVP SCH (09:00)
[2016-11-08] MEDS ORDERED: METHYLERGONOVINE 0.2 MG (MEHTERGINE) TAB PO SCH (09:00)
[2016-11-08] MEDS ORDERED: IBUPROFEN 600 MG (MOTRIN) TAB PO PRN (09:45)
== END 2016-11-08 12:48 | disposition home or self-care (01) ==
LOC: EDUNIT# 20:19 → ER 20:24 → UNDOADMOB 11-08 00:11 → WS 11-08 00:11 → 3RD 11-08 16:19 → WS 11-08 16:19
PROVIDERS: ADMIT Obstetrics & Gynecology; ATTEND Obstetrics & Gynecology
DX: O72.2 Delayed and secondary postpartum hemorrhage (principal); O99.13 Other diseases of the blood and blood-forming organs and certain disorders involving the immune mechanism complicating the puerperium; D72.829 Elevated white blood cell count, unspecified
CPT/HCPCS: 36415; 76856; 80053; 85007; 85025; 85027; 96361; 96374; 96375; 96376; G0378

== ENCOUNTER 2017-08-29 15:14 | Emergency (ER) | payer SELFPAY ==
[~2017-08-29] VITALS: Ht 172.7 cm; Wt 61.3 kg
[~2017-08-29 15:14] MED LIST changes: +ACHD5005 PO; +CEPH-507 PO; -HYDR-3812 PO; +METH0.2T47 PO; +METR500T PO
[2017-08-29] MEDS ORDERED: NS IV 1000 ML 1,000 ML IV ONE ×2 (16:00→18:26)
[2017-08-29 16:28] LABS: BASOPHILS # (AUTO) 0.1 10^3/uL (0.0-0.1); BASOPHILS % (AUTO) 1 % (0-10); EOSINOPHILS % (AUTO) 0 % (0-10); HEMATOCRIT 42 % (35-52); HEMOGLOBIN 14.4 G/DL (11.5-16.0); LYMPHOCYTES # (AUTO) 2.7 X 10^3 (1.0-4.0); LYMPHOCYTES % (AUTO) 16 % (12-44); MEAN CORPUSCULAR HEMOGLOBIN 29 PG (25-34); MEAN CORPUSCULAR HGB CONC 34 G/DL (32-36); MEAN CORPUSCULAR VOLUME 86 FL (80-99); MEAN PLATELET VOLUME 9.9 FL (7.4-10.4); MONOCYTES # (AUTO) 1.1 X 10^3 (0.0-1.0); MONOCYTES % (AUTO) 6 % (0-12); NEUTROPHILS # (AUTO) 12.9 X 10^3 (1.8-7.8); NEUTROPHILS % (AUTO) 77 % (42-75); PLATELET COUNT 370 10^3/uL (130-400); RED BLOOD COUNT 4.93 10^6/uL (4.35-5.85); WHITE BLOOD COUNT 16.8 10^3/uL (4.3-11.0)
[2017-08-29] MEDS ORDERED: LORazepam INJ 2 MG/ML (ATIVAN) VIAL IVP ONE ×2 (16:30→17:15)
--- NOTE | 2017-08-29 16:35 | Diagnostic Imaging Report ---
INDICATION: Heart palpitations. COMPARISON: 04/15/2007. FINDINGS: Two views of the chest are obtained. Heart size is normal. The pulmonary vessels appear unremarkable. There is no pneumothorax, mediastinal widening, or pleural fluid. The lungs are hyperinflated. The lungs are otherwise clear. The osseous structures appear unremarkable. IMPRESSION: Hyperinflation. No additional abnormality is demonstrated. Dictated by: Dictated on workstation # [id number]
[2017-08-29 16:40] LABS: AMPHETAMINE SCREEN, URINE POSITIVE (NEGATIVE); COCAINE SCREEN URINE POSITIVE (NEGATIVE); METHAMPHETAMINE SCREEN URINE S POSITIVE (NEGATIVE)
[2017-08-29 16:41] LABS: BARBITURATE SCREEN URINE NEGATIVE (NEGATIVE); BENZODIAZEPINES SCREEN URINE NEGATIVE (NEGATIVE); CANNABINOID SCREEN, URINE NEGATIVE (NEGATIVE); METHADONE STAT NEGATIVE (NEGATIVE); OPIATE SCREEN URINE NEGATIVE (NEGATIVE); OXYCODONE STAT NEGATIVE (NEGATIVE); PROPOXYPHENE STAT NEGATIVE (NEGATIVE); TRICYCLIC ANTIDEPRESSANTS SCRE NEGATIVE (NEGATIVE)
[2017-08-29 16:44] LABS: BAND NEUTROPHILS 0 %; BASOPHILS % (MANUAL) 0 %; EOSINOPHILS % (MANUAL) 0 %; LYMPHOCYTES % (MANUAL) 14 %; MONOCYTES % (MANUAL) 6 %; NEUTROPHILS % (MANUAL) 80 %; RBC MORPH NORMAL
--- NOTE | 2017-08-29 16:44 | ED Chest Pain ---
General Chief Complaint: Chest Wall/Rib Pain Stated Complaint: CHEST PAIN Nursing Triage Note: patient reports taking 2 energy pills this morning and having palpitations since Nursing Sepsis Screen: No Definite Risk Source: patient Exam Limitations: no limitations (JAMAL REED MD) History of Present Illness Date Seen by Provider: Aug 29, 2017 Time Seen by Provider: 15:53 Initial Comments This 27-year-old woman presents to the emergency room with epigastric and chest pain that started a couple of hours prior to presentation. She took 2 [employer]ers energy capsules around noon. She also was drinking alcohol last night. She feels like she can't get a deep breath. She has pleuritic pain in the lower chest. Symptoms are worse with a deep breath. She denies any drug use of any kind. She denies tobacco use. She is very anxious. (JAMAL REED MD) Allergies and Home Medications Allergies Coded Allergies: No Known Drug Allergies (Unverified , 11/08/16) Home Medications Cephalexin 500 Mg Capsule, 500 MG PO QID for 7 Days, #28 Prescribed by: ELANA OLMOS on 11/08/16 0822 Hydrocodone Bit/Acetaminophen 1 Each Tablet, 1-2 TAB PO Q4H PRN for PAIN- MODERATE, #45 Prescribed by: SLAVA SANCHEZ on 10/29/16 0857 Ibuprofen 600 Mg Tablet, 600 MG PO Q6H, #40 Ref 1 Prescribed by: SLAVA SANCHEZ on 10/29/16 0857 Methylergonovine Maleate 0.2 Mg Tablet, 0.2 MG PO TID for 3 Days, #9 Prescribed by: ELANA OLMOS on 11/08/16 0822 Metronidazole 500 Mg Tablet, 500 MG PO BID for 7 Days, #10 Prescribed by: ELANA OLMOS on 11/08/16 0822 Multivitamins with Iron 1 Each Tab.chew, 1 EACH PO DAILY, (Reported) Review of Systems Constitutional: no symptoms reported EENTM: No Symptoms Reported Respiratory: See HPI Cardiovascular: See HPI Gastrointestinal: See HPI Genitourinary: No Symptoms Reported Musculoskeletal: no symptoms reported Skin: no symptoms reported Psychiatric/Neurological: No Symptoms Reported Endocrine: No Symptoms Reported Hematologic/Lymphatic: No Symptoms Reported (JAMAL REED MD) Past Rusjtho-Fuhgmi-Ysudwy Hx Patient Social History Alcohol Use: Denies Use Recreational Drug Use: No 2nd Hand Smoke Exposure: No Recent Foreign Travel: No Contact w/Someone Who Travel: No Recent Infectious Disease Expo: No Recent Hopitalizations: No (JAMAL REED MD) Immunizations Up To Date Tetanus Booster (TDap): Less than 5yrs (JAMAL REED MD) Seasonal Allergies Seasonal Allergies: No (JAMAL REED MD) Surgeries History of Surgeries: Yes (T&A) Surgeries: Adenoidectomy, Section, Tonsillectomy (JAMAL REED MD) Respiratory History of Respiratory Disorde: No Respiratory Disorders: Asthma (JAMAL REED MD) Cardiovascular History of Cardiac Disorders: No (JAMAL REED MD) Neurological History of Neurological Disord: No (JAMAL REED MD) Reproductive System : No Hx Reproductive Disorders: No Sexually Transmitted Disease: No HIV/AIDS: No Female Reproductive Disorders: Denies (JAMAL REED MD) Genitourinary History of Genitourinary Disor: No (JAMAL REED MD) Gastrointestinal History of Gastrointestinal Di: Yes Gastrointestinal Disorders: Gastroesophageal Reflux (JAMAL REED MD) Musculoskeletal History of Musculoskeletal Dis: Yes Musculoskeletal Disorders: Chronic Back Pain (JAMAL REED MD) Endocrine History of Endocrine Disorders: No (JAMAL REED MD) HEENT History of HEENT Disorders: No Loss of Vision: Denies Hearing Impairment: Denies (JAMAL REED MD) Cancer History of Cancer: No (JAMAL REED MD) Psychosocial History of Psychiatric Problem: Yes Behavioral Health Disorders: Anxiety, Bipolar (JAMAL REED MD) Integumentary History of Skin or Integumenta: No (JAMAL REED MD) Blood Transfusions History of Blood Disorders: No Adverse Reaction to a Blood Tr: No (N/A) (JAMAL REED MD) Family Medical History Significant Family History: No Pertinent Family Hx Family Medial History: COPD 19 MOTHER Cardiovascular disease 19 MOTHER Hypertension 19 MOTHER Kidney disease 19 MOTHER Seizure disorder 19 MOTHER UNKOWN HX 19 FATHER G8 BROTHER (JAMAL REED MD) Family Medial History: COPD 19 MOTHER Cardiovascular disease 19 MOTHER Hypertension 19 MOTHER Kidney disease 19 MOTHER Seizure disorder 19 MOTHER UNKOWN HX 19 FATHER G8 BROTHER (LENNY MILLAN) Physical Exam Vital Signs Vital Signs - First Documented 08/29/17 15:46 Temp 98.2 Pulse 120 Resp 18 B/P (MAP) 135/100 (112) Pulse Ox 99 (LENNY MILLAN) Vital Signs Capillary Refill : Less Than 3 Seconds (JAMAL REED MD) General Appearance: WD/WN, Mild Distress, Thin HEENT: PERRL/EOMI, Normal ENT Inspection, Pharynx Normal Neck: Normal Inspection Respiratory: Lungs Clear, Normal Breath Sounds, No Accessory Muscle Use, No Respiratory Distress Cardiovascular: No Edema, No Murmur, Tachycardia Gastrointestinal: Normal Bowel Sounds, Soft, Tenderness (epigastrium and left upper quadrant) Extremity: Normal Inspection, No Pedal Edema Neurologic/Psychiatric: Alert, Oriented x3, No Motor/Sensory Deficits, Normal Mood/Affect, primary care coordinator II-XII Norm as Tested Skin: Normal Color, Warm/Dry (JAMAL REED MD) Progress/Results/Core Measures Results/Orders Lab Results Laboratory Tests Test 08/29/17 16:03 08/29/17 16:20 08/29/17 16:30 08/29/17 17:30 Range/Units Urine Color YELLOW Urine Clarity VERY CLOUDY H Urine pH 6 5-9 Urine Specific [place] 1.025 H 1.016-1.022 Urine Protein 2+ H NEGATIVE Urine Glucose (UA) NEGATIVE NEGATIVE Urine Ketones 2+ H NEGATIVE Urine Nitrite NEGATIVE NEGATIVE Urine Bilirubin NEGATIVE NEGATIVE Urine Urobilinogen 1 NORMAL MG/DL Urine Leukocyte Esterase 2+ H NEGATIVE Urine RBC (Auto) 3+ H NEGATIVE Urine RBC NONE /HPF Urine WBC NONE /HPF Urine Squamous Epithelial Cells NONE /HPF Urine Crystals NONE /LPF Urine Amorphous Sediment LARGE CHRISTIE URATES H /LPF Urine Bacteria NEGATIVE /HPF Urine Casts NONE /LPF Urine Mucus NEGATIVE /LPF Urine Culture Indicated NO Urine Opiates Screen NEGATIVE NEGATIVE Urine Oxycodone Screen NEGATIVE NEGATIVE Urine Methadone Screen NEGATIVE NEGATIVE Urine Propoxyphene Screen NEGATIVE NEGATIVE Urine Barbiturates Screen NEGATIVE NEGATIVE Ur Tricyclic Antidepressants Screen NEGATIVE NEGATIVE Urine Phencyclidine Screen NEGATIVE NEGATIVE Urine Amphetamines Screen POSITIVE H NEGATIVE Urine Methamphetamines Screen POSITIVE H NEGATIVE Urine Benzodiazepines Screen NEGATIVE NEGATIVE Urine Cocaine Screen POSITIVE H NEGATIVE Urine Cannabinoids Screen NEGATIVE NEGATIVE White Blood Count 16.8 H 4.3-11.0 10^3/uL Red Blood Count 4.93 4.35-5.85 10^6/uL Hemoglobin 14.4 11.5-16.0 G/DL Hematocrit 42 35-52 % Mean Corpuscular Volume 86 80-99 FL Mean Corpuscular Hemoglobin 29 25-34 PG Mean Corpuscular Hemoglobin Concent 34 32-36 G/DL Red Cell Distribution Width 13.0 10.0-14.5 % Platelet Count 370 130-400 10^3/uL Mean Platelet Volume 9.9 7.4-10.4 FL Neutrophils (%) (Auto) 77 H 42-75 % Lymphocytes (%) (Auto) 16 12-44 % Monocytes (%) (Auto) 6 0-12 % Eosinophils (%) (Auto) 0 0-10 % Basophils (%) (Auto) 1 0-10 % Neutrophils # (Auto) 12.9 H 1.8-7.8 X 10^3 Lymphocytes # (Auto) 2.7 1.0-4.0 X 10^3 Monocytes # (Auto) 1.1 H 0.0-1.0 X 10^3 Eosinophils # (Auto) 0.0 0.0-0.3 10^3/uL Basophils # (Auto) 0.1 0.0-0.1 10^3/uL Neutrophils % (Manual) 80 % Lymphocytes % (Manual) 14 % Monocytes % (Manual) 6 % Eosinophils % (Manual) 0 % Basophils % (Manual) 0 % Band Neutrophils 0 % Blood Morphology Comment NORMAL Sodium Level 138 135-145 MMOL/L Potassium Level 3.9 3.6-5.0 MMOL/L Chloride Level 100 98-107 MMOL/L Carbon Dioxide Level 21 21-32 MMOL/L Anion Gap 17 H 5-14 MMOL/L Blood Urea Nitrogen 15 7-18 MG/DL Creatinine 0.81 0.60-1.30 MG/DL Estimat Glomerular Filtration Rate > 60 BUN/Creatinine Ratio 19 Glucose Level 90 70-105 MG/DL Calcium Level 10.0 8.5-10.1 MG/DL Magnesium Level 1.8 1.8-2.4 MG/DL Total Bilirubin 1.3 H 0.1-1.0 MG/DL Aspartate Amino Transf (AST/SGOT) 35 H 5-34 U/L Alanine Aminotransferase (ALT/SGPT) 27 0-55 U/L Alkaline Phosphatase 102 40-136 U/L Troponin I < 0.30 <0.30 NG/ML Total Protein 8.5 H 6.4-8.2 GM/DL Albumin 4.9 H 3.2-4.5 GM/DL TSH [place] Testing 2.22 0.35-4.94 UIU/ML Lipase 8 8-78 U/L Serum Alcohol < 10 <10 MG/DL D-Dimer 0.33 0.00-0.49 UG/ML (LENNY MILLAN) Medications Given in ED Current Medications Medications Dose Ordered Sig/Rach Route Start Time Stop Time Status Last Admin Dose Admin Diazepam 5 mg ONCE ONCE IV 08/29/17 18:30 08/29/17 18:31 DC 08/29/17 18:43 5 MG Ketorolac Tromethamine 15 mg ONCE ONCE IVP 08/29/17 17:45 08/29/17 17:46 DC 08/29/17 18:16 15 MG Lorazepam 0.5 mg ONCE ONCE IVP 08/29/17 16:30 08/29/17 16:31 DC 08/29/17 16:41 0.5 MG Lorazepam 1 mg ONCE ONCE IVP 08/29/17 17:15 08/29/17 17:16 DC 08/29/17 17:21 1 MG Sodium Chloride 1,000 ml @ 0 mls/hr Q0M ONCE IV 08/29/17 16:00 08/29/17 16:03 DC 08/29/17 16:42 0 MLS/HR Sodium Chloride 1,000 ml @ 0 mls/hr Q0M ONCE IV 08/29/17 18:26 08/29/17 18:27 DC 08/29/17 18:43 0 MLS/HR (LENNY MILLAN) Vital Signs/I&O Vital Sign - Last 12Hours 08/29/17 15:46 Temp 98.2 Pulse 120 Resp 18 B/P (MAP) 135/100 (112) Pulse Ox 99 (LENNY MILLAN) Blood Pressure Mean: 112 Progress Note #1: Time: 16:44 Progress Note Workup is underway. Patient is receiving IV fluids. Ativan was given for anxiety after test result was known to be negative. Progress Note #2: Time: 17:05 Progress Note Patient was found to have methamphetamines and cocaine in her urine drug screen. She is still having chest pain and tachycardia after 500 mL of normal saline and 0.5 mg of Ativan IV. It 1 mg Ativan dose has been ordered. EKG was obtained and shows sinus tachycardia with no acute ST elevation or depression. Progress Note #3: Time: 18:38 Progress Note Patient continued to have pain and tachycardia after a liter of IV fluids and Ativan 1.5 mg IV. Leukocytosis was further evaluated with urinalysis. No infection was identified on chest x-ray or in urine. Patient will be additionally treated with Valium 5 mg IV and another liter of IV fluids. Case was reviewed with Dr. Elliott who did not feel admission was necessary for this patient as long as there was no evidence of ischemia on EKG and troponin. Case was reviewed with Dr. Millan and care was transferred to him at this time. (JAMAL REED MD) Progress Note : Time: :44 Progress Note Met with the patient and took her history personally as well as physically examined and agree with the findings noted above by Dr. Torres. After discussing the case at length with Dr. Torres plan is to give her a little more Valium to help with the symptoms of the cocaine intoxication and some more IV fluids before letting her go home to follow up outpatient. The patient is in agreement with this plan, calm with mild anxiety. 1900: Patient's fluids are completed and she is feeling better and ready to go home. (LENNY MILLAN) ECG Initial ECG Impression Date: Aug 29, 2017 Initial ECG Impression Time: 17:05 Initial ECG Rate: 110 Initial ECG Rhythm: S.Tach Comment Sinus tachycardia with no ST elevation or depression. No abnormal intervals or axis deviation. (JAMAL REED MD) Diagnostic Imaging Diagonstic Imaging: Xray Plain Films/CT/US/NM/MRI: chest Comments Chest x-ray viewed by me and report reviewed. See report below: NAME: [facility]IKA [facility] REC#: [id number] PT STATUS: REG ER : 1990 PHYSICIAN: JAMAL REED MD ADMIT DATE: 08/29/17/ER Signed Date of Exam: 08/29/17 CHEST PA/LAT (2 VIEW) INDICATION: Heart palpitations. COMPARISON: 04/15/2007. FINDINGS: Two views of the chest are obtained. Heart size is normal. The pulmonary vessels appear unremarkable. There is no pneumothorax, mediastinal widening, or pleural fluid. The lungs are hyperinflated. The lungs are otherwise clear. The osseous structures appear unremarkable. IMPRESSION: Hyperinflation. No additional abnormality is demonstrated. Dictated by: Dictated on workstation # [id number] Dict: 08/29/17 1631 Trans: 08/29/17 1637 Interpreted by: KO SIMMS DO Electronically signed by: KO SIMMS DO 08/29/17 1637 (JAMAL REED MD) Departure Impression Impression: Primary Impression: Atypical chest pain Additional Impressions: Sinus tachycardia Cocaine abuse Methamphetamine abuse Leukocytosis Qualified Codes: D72.829 - Elevated white blood cell count, unspecified Disposition: HOME, SELF-CARE Condition: Improved Departure-Patient Inst. Decision time for Depature: 19:00 (LENNY MILLAN) Referrals: NO,LOCAL PHYSICIAN (PCP/Family) Primary Care Physician Patient Instructions: Cocaine, Methamphetamine Add. Discharge Instructions: Drink plenty of fluids and get some rest. Consider using a local drug treatment program to help you quit. Narcotics Anonymous can be reached by visiting www.NA.org to find a local meeting or Phone meeting near you. All discharge instructions reviewed with patient and/or family. Voiced understanding. JAMAL REED MD Aug 29, 2017 16:44 LENNY MILLAN Aug 29, 2017 18:45
[2017-08-29 16:57] LABS: ALANINE AMINOTRANSFERASE 27 U/L (0-55); ALBUMIN 4.9 GM/DL (3.2-4.5); ALKALINE PHOSPHATASE 102 U/L (40-136); BILIRUBIN,TOTAL 1.3 MG/DL (0.1-1.0); BUN/CREATININE RATIO 19; CARBON DIOXIDE 21 MMOL/L (21-32); CHLORIDE 100 MMOL/L (98-107); CREATININE SERUM 0.81 MG/DL (0.60-1.30); GFR ESTIMATED > 60; GLUCOSE 90 MG/DL (70-105); MAGNESIUM 1.8 MG/DL (1.8-2.4); POTASSIUM 3.9 MMOL/L (3.6-5.0); SODIUM 138 MMOL/L (135-145); TOTAL PROTEIN 8.5 GM/DL (6.4-8.2)
[2017-08-29 17:00] LABS: LIPASE 8 U/L (8-78)
[2017-08-29 17:09] LABS: TSH (THYROID ANALYZER) 2.22 UIU/ML (0.35-4.94)
[2017-08-29] MEDS ORDERED: KETOROLAC 30 MG/ML VIAL IVP ONE (17:45)
[2017-08-29 18:02] LABS: BILIRUBIN,URINE NEGATIVE (NEGATIVE); COLOR,URINE YELLOW; GLUCOSE, URINE (UA) NEGATIVE (NEGATIVE); KETONES,URINE 2+ (NEGATIVE); LEUKOCYTE ESTERASE ,URINE 2+ (NEGATIVE); NITRITE,URINE NEGATIVE (NEGATIVE); PH,URINE 6 (5-9); PROTEIN,URINE 2+ (NEGATIVE); UROBILINOGEN,URINE 1 MG/DL (NORMAL)
[2017-08-29 18:04] LABS: CLARITY,URINE VERY CLOUDY
[2017-08-29 18:10] LABS: AMORPHOUS SEDIMENT,UR LARGE AMOR URATES /LPF; BACTERIA,URINE NEGATIVE /HPF
[2017-08-29] MEDS ORDERED: DIAZEPAM INJ 10 MG/2 ML (VALIUM) SYR IV ONE (18:30)
[2017-08-29 19:15] VITALS: BP 124/80
== END 2017-08-29 19:15 | disposition home or self-care (01) ==
LOC: EDUNIT# 15:14 → ER 15:16
DX: R07.89 Other chest pain (principal); R00.0 Tachycardia, unspecified; D72.829 Elevated white blood cell count, unspecified; F14.10 Cocaine abuse, uncomplicated; F15.10 Other stimulant abuse, uncomplicated; F41.9 Anxiety disorder, unspecified; F31.9 Bipolar disorder, unspecified; K21.9 Gastro-esophageal reflux disease without esophagitis; J45.909 Unspecified asthma, uncomplicated; Z90.89 Acquired absence of other organs; Z87.59 Personal history of other complications of pregnancy, childbirth and the puerperium
CPT/HCPCS: 36415; 71046; 80053; 80306; 80320; 81000; 83690; 83735; 84443; 84484; 85007; 85027; 85379; 93005